=== PATIENT | male | born 1965 | race Caucasian/White ===

== ENCOUNTER 2024-05-24 05:59 | Emergency (ER) | payer OTHER, SELFPAY ==
[2024-05-24 06:05] VITALS: BP 150/61
[2024-05-24 06:32] LABS: % Basophils 0.8 % (0-2); % Eosinophils 1.5 % (0-6); % Immature Granulocytes 0.3 % (0-0.5); % Lymphocytes 28.3 % (20.5-51.1); % Monocytes 7.5 % (1.7-9.3); % Neutrophils 61.6 % (42.2-75.2); Absolute Basophils 0.1 10^3/uL (0-0.2); Absolute Eosinophils 0.1 10^3/uL (0-0.7); Absolute Lymphocytes 2.4 10^3/uL (1.2-3.4); Absolute Monocytes 0.6 10^3/uL (0.1-0.6); Absolute Neutrophils 5.3 10^3/uL (1.4-6.5); Hematocrit 42.8 % (39.0-52.0); Hemoglobin 14.3 g/dL (13.0-18.0); Mean Corp Hgb Conc. 33.4 g/dL (33.0-37.0); Mean Corpuscular Hgb 29.4 pg (27.0-31.0); Mean Corpuscular Volume 87.9 fL (80.0-94.0); Mean Platelet Volume 9.2 fL (7.4-10.4); Nucleated Red Blood Cells % 0 % (-); Platelet Count 248 10^3/uL (130-400); Red Blood Cell Count 4.87 10^6/uL (4.70-6.10); White Blood Cell Count 8.6 10^3/uL (4.8-10.8)
[2024-05-24 07:00] LABS: Troponin I < 0.012 ng/ml
[2024-05-24 07:05] LABS: ALT (SGPT) 19 U/L (0-50); AST (SGOT) 22 U/L (17-59); Albumin 4.5 g/dl (3.5-5.0); Alkaline Phosphatase 70 U/L (38-126); Blood Urea Nitrogen 16 mg/dl (9-20); Calcium 9.9 mg/dl (8.4-10.2); Carbon Dioxide 26 mmol/L (22-30); Chloride 103 mmol/L (98-107); Glucose 115 mg/dl (70-99); Potassium 3.9 mmol/L (3.5-5.1); Sodium 140 mmol/L (135-145); Total Bilirubin 0.9 mg/dl (0.2-1.3); Total Protein 6.8 g/dl (6.3-8.2); eGFR > 60.00
--- NOTE | 2024-05-24 07:42 | ED.GENMED ---
History of Present Illness
General
Chief Complaint: Chest Problem
Source: patient
Exam Limitations: none
Time Seen by Provider: 05/24/24 07:34
Nursing documentation reviewed up to this point in time: agreed with
History of Present Illness
History of Present Illness:
59 yo male with no clinically significant PMHX presents for mid chest 'prickling sensation,' awakened from a dream 5 a.m. feeling this, felt anxious and panicky, felt sweaty, called son who lives with him, who recommended coming here. Pt states the
sensation in chest is intermittent, lasts for about 30 sec to a minute, then subsides, returns about 30-40 minutes later for same amount of time.
Past History
Past History
ED Past Medical History: None
ED Past Surgical History: Cholecystectomy and Orthopedic (Right hip replacement)
Social History
Tobacco: Former smoker (1 nicotine cartridge lasts 1 week)
Alcohol: None
Drug: None
Living: with family
Employment: Employed
Family History
Family History: Other (Brother had cardiac stents age 48, no other significant cardiac history in family)
Review of Systems
Review of Systems
Allergies reviewed?: Yes
All Other Systems: ROS reviewed and negative except as documented in HPI and ROS
Constitutional: Denies fever or fatigue
Respiratory: Denies trouble breathing
Cardiac: Reports chest pain; Denies diaphoresis, palpitations or syncope
ABD/GI: Denies abdominal pain, nausea, vomiting or diarrhea
Musculoskeletal: Reports no symptoms
Skin: Reports no symptoms
Neurological: Reports no symptoms
Phy Exam
Physical Exam
Physical Exam:
GENERAL: No acute distress. A&Ox3.
CONSTITUTIONAL: Afebrile.
EYES: clear, conjunctivae normal
ENMT: moist mucus membranes
RESPIRATORY: Regular respirations, nonlabored, lungs clear.
CARDIOVASCULAR: Regular rate and rhythm, no murmurs, no rubs.
GI: Soft, nontender, normal BS
MUSCULOSKELETAL: Moves with ease. Well perfused.
SKIN: Warm, dry, pink
PSYCH: Normal mood and affect. Well kept, interactive and appropriate
NEUROLOGIC: Awake, alert and oriented. No focal neurological deficits
Course
Orders/Labs/Results
Orders:
Orders
05/24/24 06:08
Electrocardiogram (*1) Urgent
Reason for Study: Chest Pain
Other Reason for Exam: 'PINS & NEEDLES IN CHEST'
05/24/24 06:09
EKG- Treatment ONCE
05/24/24 06:24
CMP [Comprehensive Metabolic Panel] Urgent
Complete Blood Count/With Diff Urgent
Troponin I Urgent
Abnormal Lab Results
05/24/24
06:24
Glucose 115 H mg/dl
(70-99)
05/24/24 06:24
05/24/24 06:24
Vital Signs
Initial and Last Documented VS:
Initial Vital Signs
Temp Pulse Resp BP Pulse Ox
97.9 F 60 20 150/61 100
05/24/24 06:05 05/24/24 06:05 05/24/24 06:05 05/24/24 06:05 05/24/24 06:05
Last Documented Vital Signs
Temp Pulse Resp BP Pulse Ox
97.9 F 60 20 150/61 100
05/24/24 06:05 05/24/24 06:05 05/24/24 06:05 05/24/24 06:05 05/24/24 06:05
MDM/Problems Addressed
Differential Diagnosis Includes:
ACS, GERD, musculoskeletal pain
MDM/Problems Addressed:
59 yo male with no clinically significant PMHX presents for mid chest 'prickling sensation,' awakened from a dream 5 a.m. feeling this, felt anxious and panicky, felt sweaty, called son who lives with him, who recommended coming here. Pt states the
sensation in chest is intermittent, lasts for about 30 sec to a minute, then subsides, returns about 30-40 minutes later for same amount of time. Last episode about an hour ago
He took Potassium supplement first dose yesterday and is concerned that may be cause of symptoms
Had GERD in past when overweight but not recently. Has lost much weight due to exercises daily, healthy diet, vitamins/supplements
Sensation is non radiating.
EKG Sinus bradycardia
CBC, CMP normal
Troponin neg
7:30 a.m.
Pt wants to leave, explained importance of second Troponin, he understands he may still risk GA if he leaves w/o second Troponin.
He is symptom free
Strict return instructions reviewed with him and son
*EKG
EKG Intrepretation Date: 05/24/24
Interpretation: normal
Heart Rate: 57
Rate: bradycardiac
Rhythm: sinus
[place]: normal axis
Interval: normal interval
QRS Pattern: normal QRS
Ischemia: no ischemia
*Critical Care Note
Total Time (30-74mins, 75-104mins- exclusive of procedures): Not Applicable
ED Attending Note
-
Portions of this chart may have been created with voice recognition software.� Occasional wrong word or��sound alike� substitutions may have occurred due to the inherent limitations of voice recognition software.
Discharge Plan
Departure
Patient Disposition: Home (Routine Discharge)
Date of Disposition: 05/24/24
Time of Disposition: 07:38
Patient with high blood pressure during this ER visit?: No
Condition: Good
Discharge Problem:
Atypical chest pain
Instructions: Chest Pain (DC), Acid reflux and GERD in adults
Prescriptions:
No Action
No Current Medications
0
Referrals:
AYANNA Avila [Other] - As needed
Activity Restrictions/Additional Instructions:
As we discussed, try an antacid such as Pepcid or Omeprazole.
If your symptoms persists, follow up with GI doctor.
If your chest discomfort is associated with nausea/vomiting, sweating, lightheadedness or gets worse in any way, return here or to the nearest emergency room immediately.
Interventions
Interventions:
*Risk Screen - Suicide Last Done: 05/24/24 06:05
*Neglect/Abuse Screening Last Done: 05/24/24 06:05
*Nursing Disposition Last Done: 05/24/24 08:04
Discharge Date and Time
Discharge Date/Time: 05/24/24 08:05
Print Language: [id number]
== END 2024-05-24 08:05 | disposition home or self-care (01) ==
LOC: EMR 05:59
PROVIDERS: EMERGENCY PHYSICIAN Emergency Medicine
DX: R07.89 Other chest pain (principal); F41.9 Anxiety disorder, unspecified; Z87.891 Personal history of nicotine dependence; Z90.49 Acquired absence of other specified parts of digestive tract
CPT/HCPCS: 99283; 80053; 84484; 85025; 93005